=== PATIENT | male | born 1945 | race Asian ===

== ENCOUNTER 2025-01-13 07:30 | Day surgery (SDC) | payer OTHER ==
[~2025-01-13] VITALS: Ht 172.7 cm; Wt 91.0 kg
[~2025-01-13 07:30] MED LIST: ATOR10 PO; Balanced Salt Epinephrine Irrigation Solution 500 mL IR SCH; JARDIANCE10 MG PO; LISI20 PO; Moxifloxacin HCL 0.5 MG/0.1 ML 0.4MLSYR LEFTEYE SCH; Ondansetron 4 MG SoluTab MM PRN; PHENYLEPHRINE\\TROPICAMIDE\\TETRACAINE OPHTHALMIC DILATING SOLN LEFTEYE PRN; PIOG30 PO; Povidone-Iodine 450 DROP/30 ML Solution LEFTEYE SCH; Povidone-Iodine 450 DROP/30 ML Solution ONE; SITA100T2 PO; Tetracaine HCl/Pf 0.5% Opth Soln 4 ml ONE; Triamcinolone Inj Susp 40 MG / ML 1ML Vial INJ SCH; Triamcinolone Inj Susp 40 MG / ML 1ML Vial ONE; VITAMIN B-121000 MCG PO; VITAMIN D33000 UNIT PO
--- NOTE | 2025-01-13 08:14 | NUR ---
01/13/25 0814 SANDOR JONES RESTING ON GURNEY, RAILS UP, BRAKES LOCKED.
--- NOTE | 2025-01-13 08:55 | NUR ---
01/13/25 0855 Rosario Reid 151/72 66 18 100% VSS
== END 2025-01-13 09:18 | disposition home or self-care (01) ==
LOC: ORSCSDS 07:30
PROVIDERS: Ophthalmology
PROC: 08RK3JZ Replacement of Left Lens with Synthetic Substitute, Percutaneous Approach (ICD-10-PCS; principal; 2025-01-13 09:00)
DX: E11.36 Type 2 diabetes mellitus with diabetic cataract (principal); H25.812 Combined forms of age-related cataract, left eye; H52.202 Unspecified astigmatism, left eye; Z96.1 Presence of intraocular lens; I10 Essential (primary) hypertension; E78.00 Pure hypercholesterolemia, unspecified; Z79.84 Long term (current) use of oral hypoglycemic drugs; Z79.899 Other long term (current) drug therapy
CPT/HCPCS: A9270; J3301; V2632